=== PATIENT | female | born 1985 | race African-American/Black ===

== ENCOUNTER 2016-09-10 13:20 | Emergency (ER) | payer MEDICAID, OTHER ==
[~2016-09-10] VITALS: Ht 149.9 cm; Wt 50.0 kg
[2016-09-10] MEDS ORDERED: TETRACAINE 0.5% OPHTH DROPS 4ML BOTHEYE ONE (15:00)
[2016-09-10] MEDS ORDERED: LORAZEPAM 1MG TABLET PO ONE (15:00)
[2016-09-10] MEDS ORDERED: FLUORESCEIN SODIUM 1MG/STRIP LEFTEYE ONE (15:00)
[2016-09-10] MEDS ORDERED: ONDANSETRON 4MG ODT PO ONE (15:00)
[2016-09-10 15:09] LABS: BASOPHILS % 0.9 % (0.0-2.0); EOSINOPHILS % 2.6 % (0.0-5.0); HEMOGLOBIN. 8.7 g/dL (12.0-16.0); LYMPHOCYTES % 15.4 % (20.0-50.0); MEAN CORPUSCULAR HEMOGLOBIN 17.4 pg (28.0-32.0); MEAN CORPUSCULAR HGB CONC 28.9 g/dL (31.0-37.0); MEAN CORPUSCULAR VOLUME 60.2 fL (81.0-99.0); MEAN PLATELET VOLUME 8.6 fl (7.4-10.4); MONOCYTES % 8.9 % (2.0-8.0); NEUTROPHILS % 72.2 % (40.0-76.0); PLATELET 342 x1000/uL (130-400); RED BLOOD CELL COUNT 4.98 mill/uL (4.2-5.4); RED CELL DISTRIBUTION WIDTH 20.3 % (11.6-14.6); WHITE BLOOD COUNT 6.3 x1000/uL (4.5-11.0)
[2016-09-10 15:14] LABS: ADD RBC MORPHOLOGY YES; DIFFERENTIAL COMMENT 1
[2016-09-10 15:18] LABS: ANION GAP 17; CALCIUM 9.1 mg/dL (8.5-10.1); CARBON DIOXIDE 23 mEq/L (21-32); CHLORIDE 103 mEq/L (98-107); HCG SCREEN NEGATIVE; INDEX HEMOLYSI 1 (1-3); INDEX ICTERIC 1 (1-4); INDEX LIPEMIC 1 (1-3); UREA NITROGEN BLOOD 18 mg/dL (7-21); eGFR > 60 mL/min (>60)
[2016-09-10] MEDS ORDERED: DEXT 5%/0.45% NACL 1,000 ML IV ONE (15:30)
[2016-09-10 15:58] LABS: PLATELET ESTIMATE NORMAL
[2016-09-10 15:59] LABS: ANISOCYTOSIS 2+; GIANT PLATELETS FEW; HYPOCHROMASIA 3+; PLATELET SATELLITISM FEW
[2016-09-10] MEDS ORDERED: DEXT 5%/0.45% NACL 1000ML 1,000 ML IV NR ×2 (16:38)
[2016-09-10 17:37] VITALS: BP 105/51
== END 2016-09-10 17:40 | disposition home or self-care (01) ==
LOC: ER 14:45
DX: S05.01XA Injury of conjunctiva and corneal abrasion without foreign body, right eye, initial encounter (principal); F41.9 Anxiety disorder, unspecified; D64.9 Anemia, unspecified; M19.90 Unspecified osteoarthritis, unspecified site; M32.9 Systemic lupus erythematosus, unspecified; X58.XXXA Exposure to other specified factors, initial encounter; Y93.89 Activity, other specified; Y92.9 Unspecified place or not applicable; Y99.8 Other external cause status
CPT/HCPCS: 36415; 80048; 82962; 84703; 85025; 93005; 96360; 99285; Q0162; X7700; Z7610

== ENCOUNTER 2016-09-24 18:30 | Emergency (ER) | payer MEDICAID ==
[~2016-09-24] VITALS: Ht 149.9 cm; Wt 45.0 kg
[2016-09-24] MEDS ORDERED: FLUORESCEIN SODIUM 1MG/STRIP RIGHTEYE ONE (20:15)
[2016-09-24] MEDS ORDERED: TETRACAINE 0.5% OPHTH DROPS 4ML RIGHTEYE ONE (22:00)
[2016-09-24] MEDS ORDERED: BACITRACIN/POLYMYXIN B SULFATE OPHTH OINT 3.5GM RIGHTEYE ONE (22:30)
[2016-09-24] MEDS ORDERED: NEO/POLYMYX B SULF/DEXAMETH 0.1% OPHTH SUSP 5ML OP NR (22:48)
[2016-09-24 23:40] VITALS: BP 128/74
== END 2016-09-25 00:04 | disposition home or self-care (01) ==
LOC: ER 21:30
DX: M32.9 Systemic lupus erythematosus, unspecified (principal); H16.002 Unspecified corneal ulcer, left eye
CPT/HCPCS: 99284

== ENCOUNTER 2017-05-18 09:03 | Inpatient (IN) | payer MEDICAID ==
[~2017-05-18] VITALS: Ht 149.9 cm; Wt 54.4 kg
[2017-05-18 12:42] LABS: BASOPHILS % 0.2 % (0.0-2.0); EOSINOPHILS % 2.9 % (0.0-5.0); HEMATOCRIT. 22.6 % (36.0-48.0); LYMPHOCYTES % 11.4 % (20.0-50.0); MEAN CORPUSCULAR HEMOGLOBIN 18.4 pg (28.0-32.0); MEAN CORPUSCULAR VOLUME 61.7 fL (81.0-99.0); MEAN PLATELET VOLUME 8.4 fl (7.4-10.4); MONOCYTES % 8.7 % (2.0-8.0); NEUTROPHILS % 76.8 % (40.0-76.0); PLATELET 300 x1000/uL (130-400); RED BLOOD CELL COUNT 3.66 mill/uL (4.2-5.4); RED CELL DISTRIBUTION WIDTH 19.7 % (11.6-14.6)
[2017-05-18] MEDS ORDERED: ACETAMINOPHEN 500MG TABLET PO ONE (12:45)
[2017-05-18 12:47] LABS: HEMOGLOBIN. 6.7 g/dL (12.0-16.0)
[2017-05-18 12:55] LABS: CARBON DIOXIDE 23 mEq/L (21-32); CHLORIDE 109 mEq/L (98-107)
[2017-05-18 13:54] LABS: PLATELET ESTIMATE NORMAL
[2017-05-18] MEDS ORDERED: SODIUM CHLORIDE 0.9% 1,000 ML IV ONE ×2 (16:30→17:00)
[2017-05-19] VITALS (9 sets, daily range): BP systolic 92–107; BP diastolic 52–69
[2017-05-20] VITALS: BP 87/44
[2017-05-20 04:00] VITALS: BP 94/52
[2017-05-20 08:00] VITALS: BP 90/50
[2017-05-20 09:43] VITALS: BP 90/50
== END 2017-05-20 12:00 | disposition home or self-care (01) | DRG 566 ==
LOC: ER 09:36 → 8WST 21:19 → ENRESERV 05-19 07:31
PROVIDERS: ADMIT Obstetrics & Gynecology; ATTEND Obstetrics & Gynecology
PROC: 30233N1 Transfusion of Nonautologous Red Blood Cells into Peripheral Vein, Percutaneous Approach (ICD-10-PCS; principal; 2017-05-19)
DX: O99.013 Anemia complicating pregnancy, third trimester (principal); D64.9 Anemia, unspecified; Z3A.30 30 weeks gestation of pregnancy; Z79.899 Other long term (current) drug therapy
CPT/HCPCS: 36415; 36430; 76805; 80053; 84702; 85025; 86850; 86900; 86920; 96360; 96361; 99285; J7030; J7040; P9016

== ENCOUNTER 2017-07-02 08:29 | Observation (INO) | payer MEDICAID, OTHER ==
[~2017-07-02] VITALS: Ht 149.9 cm; Wt 56.2 kg
== END 2017-07-02 10:00 | disposition home or self-care (01) ==
LOC: L&D 08:29
PROVIDERS: ADMIT Obstetrics & Gynecology; ATTEND Obstetrics & Gynecology
DX: O62.9 Abnormality of forces of labor, unspecified (principal); O26.893 Other specified pregnancy related conditions, third trimester; R10.9 Unspecified abdominal pain; R10.2 Pelvic and perineal pain; Z3A.36 36 weeks gestation of pregnancy
CPT/HCPCS: 99281; G0378

== ENCOUNTER 2018-10-20 16:35 | Emergency (ER) | payer MEDICAID, OTHER ==
[~2018-10-20] VITALS: Ht 149.9 cm; Wt 50.0 kg
[2018-10-20] MEDS ORDERED: MORPHINE SULFATE 4 MG/ML CPJ (NOT FOR IM USE) IV ONE (21:15)
[2018-10-20] MEDS ORDERED: MORPHINE SULFATE 4 MG/ML CPJ (NOT FOR IM USE) IV STA (21:15)
[2018-10-20 21:47] LABS: BASOPHILS % 0.8 % (0.0-2.0); EOSINOPHILS % 9.4 % (0.0-5.0); HEMATOCRIT. 31.1 % (36.0-48.0); LYMPHOCYTES % 18.8 % (20.0-50.0); MEAN CORPUSCULAR VOLUME 61.7 fL (81.0-99.0); MEAN PLATELET VOLUME 8.9 fl (7.4-10.4); MONOCYTES % 9.5 % (2.0-8.0); NEUTROPHILS % 61.5 % (40.0-76.0); PLATELET 357 x1000/uL (130-400); RED BLOOD CELL COUNT 5.03 mill/uL (4.2-5.4); RED CELL DISTRIBUTION WIDTH 20.4 % (11.6-14.6)
[2018-10-20 21:51] LABS: CHLORIDE 104 mEq/L (98-107)
[2018-10-20 22:29] LABS: PLATELET ESTIMATE NORMAL
[2018-10-20] MEDS ORDERED: TETRACAINE 0.5% OPHTH DROPS 4ML OP ONE (22:30)
[2018-10-20] MEDS ORDERED: FLUORESCEIN SODIUM 1MG/STRIP OP ONE (22:30)
[2018-10-21 00:04] VITALS: BP 110/84
== END 2018-10-21 00:24 | disposition home or self-care (01) ==
LOC: ER 18:53
DX: H10.13 Acute atopic conjunctivitis, bilateral (principal); M32.9 Systemic lupus erythematosus, unspecified; M19.90 Unspecified osteoarthritis, unspecified site
CPT/HCPCS: 36415; 80053; 81025; 85025; 93005; 96374; 99284; J2270

== ENCOUNTER 2022-01-29 15:01 | Emergency (ER) | payer MEDICAID ==
[~2022-01-29] VITALS: Ht 149.9 cm; Wt 50.0 kg
[2022-01-29 15:03] VITALS: BP 126/84
[2022-01-29] MEDS ORDERED: BACITRACIN 15GM TUBE TOP ONE (15:30)
[2022-01-29] MEDS ORDERED: TETANUS, DIPHTHERIA, PERTUSSIS VAC/PF 0.5ML (>10YR OLD) IM ONE (15:30)
[2022-01-29] MEDS ORDERED: NAPR220C61 MT (15:33)
[2022-01-29] MEDS ORDERED: NAPR-677 MT (15:33)
== END 2022-01-29 16:00 | disposition left against medical advice (07) ==
LOC: ER 15:01
DX: S80.212A Abrasion, left knee, initial encounter (principal); S80.211A Abrasion, right knee, initial encounter; M32.9 Systemic lupus erythematosus, unspecified; Y08.89XA Assault by other specified means, initial encounter; Y93.89 Activity, other specified; Y92.488 Other paved roadways as the place of occurrence of the external cause
CPT/HCPCS: 90715; 99283